=== PATIENT | female | born 1950 | race Caucasian/White ===

== ENCOUNTER → 2016-06-30 | Outpatient (CLI) | payer MEDICARE, OTHER ==
[~2016-06-30] VITALS: Ht 158.8 cm; Wt 64.1 kg
[~2016-06-30] MED LIST: INHALER ASSIST DEVICE (Optichamber) MC ONE
== END ==
LOC: RC 14:28
PROVIDERS: ATTEND Family Medicine
DX: J20.9 Acute bronchitis, unspecified (principal)
CPT/HCPCS: 94060; 94726; 94729; A9270